=== PATIENT | female | born 1925 | race Caucasian/White ===

== ENCOUNTER 2017-02-06 12:38 | Outpatient (CLI) | payer MEDICARE ==
--- NOTE | 2017-02-06 17:13 | RAD ---
EXAM: ESOPHAGRAM 02/06/17 HISTORY: Dysphagia. RADIATION DOSIMETRY: Fluoroscopy time of 1 minute 7 seconds of fluoroscopy and AK of 50.4 mGy. A suspension of barium sulfate as well as a barium tablet were given to the patient. The esophagus demonstrates no definite evidence of esophageal webs, bands or strictures. Tertiary co ntractions seen in the distal and mid esophagus. Barium flows into the stomach. The barium tablet al so passes readily into the stomach. IMPRESSION: Tertiary contractions seen in the distal esophagus. No evidence of esophageal masses or lesions seen . Barium passes into the stomach. POS: [facility]
== END 2017-02-06 12:39 | disposition home or self-care (01) ==
LOC: RAD 12:38
PROVIDERS: ATTEND Internal Medicine Gastroenterology
DX: K21.9 Gastro-esophageal reflux disease without esophagitis (principal); R13.10 Dysphagia, unspecified
CPT/HCPCS: 74220